=== PATIENT | female | born 2000 | race Two or more races ===

== ENCOUNTER 2022-11-11 06:39 | Inpatient (IN) ==
[2022-11-11] MEDS: D5 1/2 NS 1,000 ML 1,000 ML IV SCH ×2 (07:00→18:13)
[2022-11-11] MEDS ORDERED: REGLAN INJ 10 MG VIAL IVP PRN (07:28)
[2022-11-11] MEDS ORDERED: D5 LR + PITOCIN 10 UNITS/L 10 UNITS/1,000 ML BAG IV PRN (07:28)
[2022-11-11] MEDS ORDERED: PITOCIN IVP ONE (07:28)
[2022-11-11] MEDS ORDERED: STADOL INJ IVP PRN (07:31)
[2022-11-11] MEDS ORDERED: PITOCIN ONE (07:39)
[2022-11-11] MEDS ORDERED: D5 1/2 NS 1,000 ML 1,000 ML IV ONE (07:39)
[2022-11-11] MEDS ORDERED: BETADINE SOLN ONE (07:39)
[2022-11-11] MEDS ORDERED: AMPICILLIN VIAL 2 GRAM ONE (07:40)
[2022-11-11] MEDS ORDERED: D5 1/2 NS 1,000 mL + PITOCIN 20 UNITS/L IV 20 UNITS/1,000 ML BAG IV ONE (07:40)
[2022-11-11] MEDS ORDERED: D5 LR + PITOCIN 10 UNITS/L 10 UNITS/1,000 ML BAG IV ONE ×2 (07:40→17:50)
[2022-11-11] MEDS ORDERED: NS 100 ML IV 100 ML ONE ×3 (07:40→14:45)
[2022-11-11 07:41] LABS: BILIRUBIN,URINE NEGATIVE (NEGATIVE); BLOOD/HEMOGLOBIN,URINE NEGATIVE (NEGATIVE); GLUCOSE, URINE NEGATIVE (NEGATIVE); KETONES,URINE NEGATIVE (NEGATIVE); LEUKOCYTE ESTERASE ,URINE 3+ (NEGATIVE); NITRITES,URINE NEGATIVE (NEGATIVE); PROTEIN,URINE 1+ (NEGATIVE); UROBILINOGEN,URINE NORMAL (NORMAL)
[2022-11-11 07:42] LABS: APPEARANCE,URINE HAZY (CLEAR); COLOR,URINE YELLOW (YELLOW)
[2022-11-11 07:49] LABS: BACTERIA,URINE 2+ /HPF (NEGATIVE); RBC,URINE 0-2 /HPF (0-3); SQUAMOUS EPITHELIAL CELL,UR FEW /HPF (NEGATIVE)
[2022-11-11] MEDS ORDERED: AMPICILLIN VIAL 2 GRAM 2 G in NS 100 ML IV + SPIKE MINIBAG* 100 ML IV SCH (08:00)
[2022-11-11 08:22] LABS: BASOPHILS % (AUTO) 0.3 % (0.2-1.0); EOSINOPHILS # (AUTO) 0.2 x10^3/uL (0.0-0.2); EOSINOPHILS % (AUTO) 2.2 % (0.9-2.9); HEMATOCRIT 36.6 % (36.0-47.0); LYMPHOCYTES # (AUTO) 1.9 X10^3/uL (1.3-2.9); LYMPHOCYTES % (AUTO) 20.4 % (21.0-51.0); MEAN CORPUSCULAR HEMOGLOBIN 24.4 pg (27.0-34.0); MEAN CORPUSCULAR HGB CONC 32.9 g/dL (33.0-35.0); MEAN CORPUSCULAR VOLUME 74.2 fL (80.0-100.0); MEAN PLATELET VOLUME 8.7 fL (7.4-11.0); MONOCYTES # (AUTO) 0.7 x10^3/uL (0.3-0.8); MONOCYTES % (AUTO) 7.3 % (0.0-13.0); NEUTROPHILS # (AUTO) 6.3 x10^3/uL (2.2-4.8); NEUTROPHILS % (AUTO) 69.8 % (42.0-75.0); RED BLOOD COUNT 4.93 X10^6/uL (3.5-5.4); RED CELL DISTRIBUTION WIDTH 15.5 % (11.6-16.5); WHITE BLOOD COUNT 9.1 X10^3/uL (3.6-10.0)
[2022-11-11 08:33] LABS: BLOOD UREA NITROGEN 10 mg/dL (7-18); CALCIUM 8.7 mg/dL (8.5-10.1); CARBON DIOXIDE 22.3 mmol/L (21-32); CHLORIDE 104 mmol/L (98-107); CREATININE 0.62 mg/dL (0.55-1.02); SODIUM 138 mmol/L (136-145); eGFR NON BLACK RACES > 60 (>60)
[2022-11-11 08:47] LABS: MICROCYTOSIS SLIGHT; PLATELET MORPHOLOGY COMMENT NORMAL (NORMAL)
[2022-11-11] MEDS ORDERED: FENTANYL VIAL INJ 100 mcg ONE (10:22)
[2022-11-11] MEDS ORDERED: LR 1,000 ML IV 1,000 ML IV ONE (10:22)
[2022-11-11] MEDS ORDERED: ZOFRAN INJ 4 MG VIAL ONE (10:22)
[2022-11-11] MEDS ORDERED: NAROPIN EPIDURAL 0.2% 100 ML ONE (10:23)
[2022-11-11] MEDS ORDERED: AMPICILLIN VIAL 1 GRAM ONE ×2 (10:28→14:45)
[2022-11-11] MEDS: AMPICILLIN VIAL 1 GRAM 1 G in NS 100 ML IV 100 ML IV SCH ×2 (10:38→14:55)
[2022-11-11] MEDS ORDERED: TYLENOL 500 MG TAB EXTRA STRENGTH PO ONE ×2 (13:57→14:02)
[2022-11-11] MEDS ORDERED: MOTRIN TAB 800 MG PO PRN (19:21)
[2022-11-11] MEDS: D5 1/2 NS 1,000 ML 1,000 ML with PITOCIN 20 UNITS IV SCH ×2 (19:38)
[2022-11-11] MEDS ORDERED: MILK OF MAGNESIA PO PRN (19:58)
[2022-11-11] MEDS ORDERED: AMBIEN PO PRN (19:58)
[2022-11-11] MEDS ORDERED: DERMOPLAST PAIN RELIEF SPRAY TOP PRN (19:58)
[2022-11-11] MEDS: MOTRIN TAB 800 MG PO PRN (20:35)
[2022-11-12] MEDS: D5 1/2 NS 1,000 ML 1,000 ML with PITOCIN 20 UNITS IV SCH ×4 (04:01→04:59)
[2022-11-12 05:25] LABS: HEMATOCRIT 33.1 % (36.0-47.0); HEMOGLOBIN 11.2 g/dL (12.0-16.0)
[2022-11-12] MEDS: PRENATAL PLUS PO SCH (08:03)
[2022-11-12] MEDS: MOTRIN TAB 800 MG PO PRN ×2 (10:08→18:25)
[2022-11-13] MEDS: MOTRIN TAB 800 MG PO PRN (06:56)
[2022-11-13 08:48] VITALS: BP 134/83
[2022-11-13] MEDS: PRENATAL PLUS PO SCH (08:55)
== END 2022-11-13 10:50 | disposition home or self-care (01) | DRG 807 ==
LOC: LD 06:39 → MED/SURG 09:32 → LD 09:47 → MED/SURG 09:47
PROVIDERS: ADMIT Obstetrics & Gynecology Obstetrics; ATTEND Obstetrics & Gynecology Obstetrics
DX: O34.211 Maternal care for low transverse scar from previous cesarean delivery; Z3A.39 39 weeks gestation of pregnancy; N85.8 Other specified noninflammatory disorders of uterus; Z37.0 Single live birth